=== PATIENT | male | born 1950 | race Caucasian/White ===

== ENCOUNTER 2019-11-02 09:15 | Observation (INO) | payer BC, MEDICARE ==
[2019-11-02 10:04] LABS: #Basophils 0.1 thou/uL (0.0-0.2); #Eosinphils 0.2 thou/uL (0.0-0.7); #Lymphocytes 1.7 thou/uL (1.20-3.40); #Monocytes 0.5 thou/uL (0.11-0.59); #Neutrophils 5.4 thou/uL (1.40-6.50); %Eosinophils 2.1 % (0.0-10.0); %Lymphocytes 21.3 % (21.0-51.0); %Monocytes 6.5 % (0.0-10.0); %Neutrophils 69.1 % (42.0-75.0); Hemoglobin 14.3 g/dL (14.0-18.0); Mean Corpuscular HGB CONC 32.4 g/dL (32.0-36.0); Mean Corpuscular Hemoglobin 29.1 pg (27.0-31.0); Mean Corpuscular Volume 89.9 fL (78.0-98.0); Mean Platelet Volume 8.4 fL (7.4-10.4); Platelet Count 197 thou/uL (130-400); RBC Distribution Width 11.7 % (11.5-14.5); Red Blood Cell (RBC) Count 4.91 mill/uL (4.70-6.10); White Blood Cell (WBC) Count 7.9 thou/uL (4.8-10.8)
[2019-11-02 10:21] LABS: ALT (SGPT) 39 U/L (8-55); AST (SGOT) 30 U/L (5-34); Albumin 4.7 g/dL (3.4-4.8); Alkaline Phosphatase 72 U/L (40-110); Anion Gap 14 mmol/L (10-20); BUN (Urea Nitrogen) 16 mg/dL (8.4-25.7); Bilirubin, Total 0.5 mg/dL (0.2-1.2); Calc. Creatinine Clearance 0 mL/min (70-130); Carbon Dioxide 28 mmol/L (23-31); Chloride 102 mmol/L (98-107); Estimated GFR-MDRD 83; Globulin 2.7 g/dL (2.4-3.5); Glucose 267 mg/dL (80-115); Potassium 4.9 mmol/L (3.5-5.1); Protein, Total 7.4 g/dL (5.8-8.1); Sodium 139 mmol/L (136-145)
--- NOTE | 2019-11-02 10:21 | RAD ---
SINGLE VIEW CHEST: Date: 11/02/2019 COMPARISON: 08/21/07. HISTORY: Chest pain and shortness of breath. FINDINGS: Single view of the chest shows a normal sized cardiomediastinal silhouette. There is no evidence of c onsolidation, mass, or pleural effusion. The bones are unremarkable. IMPRESSION: No evidence of acute cardiopulmonary disease. POS: [facility]
[2019-11-02] MEDS ORDERED: Lorazepam 2 MG/ML VIAL ONE (10:33)
[2019-11-02] MEDS ORDERED: Dexamethasone 4 mg/ml Vial ONE (10:34)
[2019-11-02] MEDS ORDERED: Meclizine HCl 25 MG TAB ONE (10:34)
[2019-11-02] MEDS ORDERED: Ondansetron PF 4 MG/2 ML Vial ONE (10:34)
[2019-11-02 10:41] LABS: CK (CPK) 47 U/L (30-200); Lipase 168 U/L (8-78)
--- NOTE | 2019-11-02 11:25 | CT ---
CT BRAIN WITHOUT CONTRAST: HISTORY: Altered mental status. Dizziness FINDINGS: No evidence of acute infarct, hemorrhage, midline shift or abnormal extra-axial fluid collections is seen. The ventricular size is appropriate and the basilar cisterns are patent. The bony calvarium is intact. The visualized paranasal sinuses and mastoid air cells are well aerated. IMPRESSION: No CT evidence of acute intracranial process.
[2019-11-02] MEDS ORDERED: Aspirin Chewable 81 MG TAB ONE (12:11)
[2019-11-02] MEDS ORDERED: Ondansetron ODT 4 MG TAB SL PRN (15:05)
[2019-11-02] MEDS ORDERED: Ondansetron PF 4 MG/2 ML Vial IVP PRN (15:05)
[2019-11-02] MEDS ORDERED: Meclizine HCl 25 MG TAB PO PRN (15:06)
--- NOTE | 2019-11-02 15:41 | MRI ---
MRI BRAIN WITHOUT CONTRAST: HISTORY: Vertigo, dizziness, neuropathy, altered mental status CORRELATION: CT scan from 11/02/2019. FINDINGS: No restricted diffusion is seen. There are a few foci of T2 prolongation in the periventricular white matter, consistent with mild chronic small vessel ischemic disease. The ventricular size is appropriate and the basilar cisterns are patent. No evidence of acute infarct, hemorrhage, midline shift or abnormal extra-axial fluid collections is seen. There is mucosal disease in the paranasal sinuses. IMPRESSION: No evidence of acute intracranial process.
[2019-11-02 16:10] VITALS: BMI 27.6
[2019-11-02] MEDS ORDERED: Acetaminophen 325 MG TAB PO PRN (16:55)
[2019-11-02] MEDS ORDERED: predniSONE 20 MG TAB PO SCH (17:45)
[2019-11-02] MEDS: Meclizine HCl 25 MG TAB PO SCH ×2 (17:56→23:18)
[2019-11-02] MEDS: metFORMIN 500 MG TAB PO SCH (17:56)
[2019-11-02] MEDS ORDERED: Dextrose 50% Abboject 50 ML SYRINGE SLOW IVP PRN (19:55)
[2019-11-02] MEDS ORDERED: Dextrose 5% in Water 1,000 ML IV PRN (19:55)
[2019-11-02] MEDS ORDERED: HumaLOG 300 UNITS/3 ML VIAL SC PRN ×2 (19:55)
--- NOTE | 2019-11-02 20:30 | HP ---
CHIEF COMPLAINT: Dizziness. HISTORY OF PRESENT ILLNESS: The patient is a 69-year-old male with a history of diabetes and diabetic neuropathy, who presents to the hospital with complaints of vertigo x1 day. The patient stated that he woke up this morning, upon sitting up in bed, he felt very very dizzy, he indicated that the room was spinning. At this time, he held on to objects to go to the bathroom and at the same on return. He stated that he stayed in bed, laid down and fell asleep and woke up around 6:00 am, started to having similar symptoms. He then decided to come into the ER for further evaluation. He did have some nausea and was very diaphoretic, but no chest pain or shortness of breath. He states that this has never happened to him before. He also states that he has been having some olfactory loss for the past few weeks. He stated that he also had loss of taste at this time, he went to his physician who put him on some antibiotics that could be possibly causing him to lose his taste buds. PAST MEDICAL HISTORY: He has a history of diabetes and diabetic neuropathy. PAST SURGICAL HISTORY: He has had a cholecystectomy and a knee surgery. SOCIAL HISTORY: Denies any alcohol use, drug use, or smoking history. He is a full code. Lives with his . FAMILY HISTORY: His parents of natural . ALLERGIES: HE HAS NO KNOWN DRUG ALLERGIES. MEDICATIONS: He is on: 1. Metformin 500 mg twice a day. 2. Allopurinol 100 mg daily. 3. Lyrica. 4. Brittany. REVIEW OF SYSTEMS: All negative except for the ones mentioned above in the HPI. PHYSICAL EXAMINATION: VITAL SIGNS: Temperature 98.7, pulse 83, respirations 16, 95% on room air, blood pressure 142/86. GENERAL: He is awake, alert, and oriented x3. Does not appear in distress. CV: S1 and S2 present. No murmurs, rubs, or gallops. HEENT: Normocephalic, atraumatic. No lymphadenopathy noted. Pupils equal and reactive to light. LUNGS: Clear to auscultation. No rhonchi or wheezes noted. CV: S1 and S2 present. No murmurs, rubs, or gallops. ABDOMEN: Soft and nontender. Bowel sounds are present x2. EXTREMITIES: No edema. Pedal pulses are present x2. NEUROVASCULAR: No focal deficits noted. SKIN: No cuts, lesions, or bruises noted. LABORATORY RESULTS: CT head was negative. X-ray did not show any acute abnormalities. WBC 7.9, hemoglobin of 14.3, hematocrit of 44.2, platelets of 197. Sodium of 139, potassium of 4.9, BUN of 16, creatinine 0.91, glucose of 267. Troponin x2 were negative. Lipase of 168. ASSESSMENT AND PLAN: The patient is a very pleasant 69-year-old male, who presents to the hospital with complaints of dizziness. 1. Dizziness/vertigo. This could possibly be vertigo. He did say the room was spinning. His CT head was negative. We will get an MRI brain. We will get Neuro consult. The patient denies any recent upper respiratory infection like symptoms. He has no earache, no double vision. He most likely needs outpatient dizzy and balance rehab. He also received aspirin. We will check a lipid profile on him. 2. Diabetes. We will continue with home medications and we will continue to monitor. 3. Diabetic neuropathy. Again, we will continue his Lyrica. 4. Deep vein thrombosis prophylaxis. We will put the patient on subcu Lovenox. Job ID: [id number]
[2019-11-02] MEDS ORDERED: Atorvastatin Calcium 10 MG TAB PO SCH (21:00)
[2019-11-02] MEDS ORDERED: Pregabalin 75 MG CAP PO SCH (21:00)
[2019-11-03] MEDS ORDERED: HYDROcodone/Acetaminophen 10/325 mg Tablet PO SCH (02:30)
[2019-11-03] MEDS ORDERED: Pregabalin 75 MG CAP PO SCH ×2 (03:00→14:00)
[2019-11-03 05:02] LABS: #Lymphocytes 1.4 thou/uL (1.20-3.40); #Monocytes 0.6 thou/uL (0.11-0.59); #Neutrophils 11.6 thou/uL (1.40-6.50); %Basophils 0.3 % (0.0-1.0); %Eosinophils 0.1 % (0.0-10.0); %Lymphocytes 10.3 % (21.0-51.0); %Monocytes 4.4 % (0.0-10.0); %Neutrophils 84.8 % (42.0-75.0); Hemoglobin 13.1 g/dL (14.0-18.0); Mean Corpuscular HGB CONC 32.8 g/dL (32.0-36.0); Mean Corpuscular Hemoglobin 29.4 pg (27.0-31.0); Mean Corpuscular Volume 89.6 fL (78.0-98.0); Mean Platelet Volume 8.7 fL (7.4-10.4); Platelet Count 211 thou/uL (130-400); RBC Distribution Width 11.7 % (11.5-14.5); Red Blood Cell (RBC) Count 4.46 mill/uL (4.70-6.10); White Blood Cell (WBC) Count 13.7 thou/uL (4.8-10.8)
[2019-11-03 05:33] LABS: Anion Gap 12 mmol/L (10-20); BUN (Urea Nitrogen) 16 mg/dL (8.4-25.7); Calc. Creatinine Clearance 105 mL/min (70-130); Calcium 9.5 mg/dL (7.8-10.44); Carbon Dioxide 26 mmol/L (23-31); Chloride 101 mmol/L (98-107); Estimated GFR-MDRD Greater than 90; Glucose 282 mg/dL (80-115); Potassium 4.5 mmol/L (3.5-5.1); Sodium 134 mmol/L (136-145)
[2019-11-03 07:32] VITALS: BP 108/62; TEMP 98.4
[2019-11-03] MEDS: metFORMIN 500 MG TAB PO SCH (08:21)
[2019-11-03] MEDS ORDERED: FLU VACC TS2019-20(65YR UP)/PF 180 MCG/0.5 ML SYRINGE IM ONE (09:00)
[2019-11-03] MEDS ORDERED: Enoxaparin Sodium 40 MG/0.4 ML SYRINGE SC SCH (09:00)
[2019-11-03] MEDS ORDERED: predniSONE 20 MG TAB PO SCH (09:00)
[2019-11-03] MEDS ORDERED: Allopurinol 300 MG TAB PO SCH (09:00)
--- NOTE | 2019-11-03 15:22 | DIS ---
DATE OF ADMISSION: 11/02/2019 DATE OF DISCHARGE: 11/03/2019 PRIMARY CARE PROVIDER: Dr. Isai Osorio. DISCHARGE DIAGNOSES: 1. Vertigo, most likely benign paroxysmal positional vertigo. 2. Hyponatremia. CONDITION OF PATIENT ON THE DAY OF DISCHARGE: Stable. I assessed Mr. Schaffer on the day of discharge. He denies any chest pain or shortness of breath. He denies any vertigo. Vital signs are stable. S1 and S2 are heard, regular. Lungs are clear to auscultation bilaterally. DISCHARGE MEDICATIONS: He has been started on prednisone 20 mg daily, three more doses starting November 04, 2019. Otherwise, no change was made to his pre-admission home medications, which include, 1. Allopurinol 300 mg daily. 2. Atorvastatin 10 mg at bedtime. 3. Fexofenadine/pseudoephedrine one tablet daily. 4. Glipizide 5 mg daily. 5. Durant p.r.n. 6. Metformin 1000 mg 2 times a day. 7. Savella 50 mg 2 times a day. 8. Pregabalin 300 mg 2 times a day. CONSULTATIONS DURING THIS HOSPITALIZATION: Neurology, Dr. Chen. POST-ACUTE CARE FOLLOWUP: With primary care provider in [address] Chen in 10 days. DIET: Heart healthy and diabetic. ACTIVITY: As tolerated. HOSPITAL COURSE: Mr. Schaffer is a pleasant 69-year-old gentleman, who was admitted to [facility] on November 02, 2019, for vertigo. MRI of the brain did not show any acute intracranial process. He had mucosal disease in the paranasal sinuses. He was seen by Neurology Service. 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 He was started on prednisone with improvement in his symptoms. He is being discharged home in a stable condition. He is being referred to dizzy and balance program. Many thanks for allowing me to participate in your patient's care. Please feel free to contact me with any questions or concerns. DISCHARGE DESTINATION: Home. Job ID: [id number]
--- NOTE | 2019-11-05 15:49 | EKG ---
Test Reason : Blood Pressure : / mmHG Vent. Rate : 065 BPM Atrial Rate : 065 BPM P-R Int : 204 ms QRS Dur : 084 ms QT Int : 406 ms P-R-T Axes : 011 000 031 degrees QTc Int : 422 ms Normal sinus rhythm Normal ECG Confirmed by LILLY KRAMER, DOROTHY ([id number]), slot editor ZAYNAB MORRELL ([id number]) on 11/05/2019 3:48:58 PM Referred By: Confirmed By:DOROTHY CARR MD
== END 2019-11-03 10:10 | disposition home or self-care (01) ==
LOC: ERS 09:15 → INTOOBSV 13:05 → 2SE 13:05
PROVIDERS: ADMIT Internal Medicine; ATTEND Internal Medicine
DX: R42 Dizziness and giddiness (principal); E87.1 Hypo-osmolality and hyponatremia; E11.40 Type 2 diabetes mellitus with diabetic neuropathy, unspecified; I82.409 Acute embolism and thrombosis of unspecified deep veins of unspecified lower extremity; Z79.84 Long term (current) use of oral hypoglycemic drugs; Z79.899 Other long term (current) drug therapy
CPT/HCPCS: 36415; 36416; 70450; 70551; 71045; 80048; 80053; 82550; 83690; 83880; 84484; 85025; 90471; 90662; 93005; 96361; 96374; 96375; G0008; G0378; J1100; J2060; J2405; J7512; J8597

== ENCOUNTER 2020-03-01 11:04 | Outpatient (CLI) | payer BC | END 2020-03-01 11:05 | disposition home or self-care (01) | LOC: CTENTCT 11:04 | PROVIDERS: ATTEND Otolaryngology Plastic Surgery within the Head & Neck | DX: J32.9 Chronic sinusitis, unspecified (principal) | CPT/HCPCS: 70486 ==